=== PATIENT | male | born 1995 | race Two or more races ===

== ENCOUNTER 2023-02-03 13:27 | Emergency (ER) | payer OTHER ==
[2023-02-03 13:38] VITALS: BP 123/74; PULSE 77; RESP 16; TEMP 97.2; BMI 33.3
== END 2023-02-03 16:28 | disposition home or self-care (01) ==
LOC: JER 13:27
DX: R10.32 Left lower quadrant pain (principal); R00.2 Palpitations; K59.00 Constipation, unspecified
CPT/HCPCS: 74019-TC-FY; 87086; 93005; 93010; 99285-25

== ENCOUNTER 2023-02-04 19:30 | Emergency (ER) | payer OTHER ==
[2023-02-04 19:39] VITALS: BP 146/81; PULSE 91; RESP 18; TEMP 98.7; BMI 33.3
[2023-02-04 21:41] LABS: BASO % 0.5 % (0-2.0); EOS % 0.9 % (0-4.5); HEMATOCRIT 42.1 % (35.4-49); MCHC 35.5 g/dl (32.0-35.9); MEAN CELL VOLUME 84.5 fl (80-96); MEAN PLT VOLUME 7.9 fl (7.5-11.1); MONO % 5.6 % (3.8-10.2); PLATELET COUNT 309 10^3/uL (134-434); RBC 4.98 M/mm3 (4.00-5.60); RDW 13.7 % (11.9-15.9); WHITE BLOOD COUNT 9.3 K/mm3 (4.0-10.0)
[2023-02-04 21:49] LABS: INR 1.16 (0.83-1.09); PROTHROMBIN TIME (PATIENT) 13.4 SEC (9.7-13.0)
[2023-02-04 21:52] LABS: ACTIVATED PTT 34.8 SECONDS (25.2-36.5)
[2023-02-04 21:59] LABS: POTASSIUM 3.7 mmol/L (3.5-5.1)
[2023-02-04 22:03] LABS: CALCIUM 9.3 mg/dL (8.5-10.1)
[2023-02-04 22:04] LABS: ALBUMIN 3.9 g/dl (3.4-5.0); BLOOD UREA NITROGEN 13.4 mg/dL (7-18); MAGNESIUM 2.1 mg/dL (1.8-2.4)
[2023-02-04 22:06] LABS: CREATININE 0.9 mg/dL (0.55-1.3)
[2023-02-04 22:08] LABS: BILIRUBIN,TOTAL 1.6 mg/dL (0.2-1); TOT PROT 7.6 g/dl (6.4-8.2)
== END 2023-02-04 23:12 | disposition home or self-care (01) ==
LOC: JER 19:30
DX: R07.89 Other chest pain (principal); R00.2 Palpitations; R06.02 Shortness of breath; R42 Dizziness and giddiness; R20.2 Paresthesia of skin; Z20.822 Contact with and (suspected) exposure to COVID-19
CPT/HCPCS: 0241U-QW; 36415; 71045-TC-FY; 80053; 83690; 83735; 84443; 84484; 85025; 85610; 85730; 93005; 93010; 99285-25